=== PATIENT | male | born 1995 | race Caucasian/White ===

== ENCOUNTER 2017-11-06 14:41 | Emergency (ER) | payer SELFPAY ==
[~2017-11-06] VITALS: Ht 177.8 cm; Wt 99.8 kg
[2017-11-06] MEDS ORDERED: NS IV 1000 ML 1,000 ML IV ONE (15:27)
[2017-11-06] MEDS ORDERED: ONDANSETRON 4 MG/2 ML (SDV) Z0FRAN IVP ONE (15:30)
[2017-11-06 15:33] LABS: BILIRUBIN,URINE NEGATIVE (NEGATIVE); KETONES,URINE NEGATIVE (NEGATIVE); LEUKOCYTE ESTERASE ,URINE 1+ (NEGATIVE); NITRITE,URINE NEGATIVE (NEGATIVE); PH,URINE 8 (5-9); PROTEIN,URINE 1+ (NEGATIVE); UROBILINOGEN,URINE 1 MG/DL (NORMAL)
[2017-11-06 15:35] LABS: BASOPHILS % (AUTO) 0 % (0-10); EOSINOPHILS # (AUTO) 0.1 10^3/uL (0.0-0.3); EOSINOPHILS % (AUTO) 0 % (0-10); LYMPHOCYTES # (AUTO) 0.8 X 10^3 (1.0-4.0); LYMPHOCYTES % (AUTO) 5 % (12-44); MEAN CORPUSCULAR HEMOGLOBIN 32 PG (25-34); MEAN CORPUSCULAR HGB CONC 35 G/DL (32-36); MEAN CORPUSCULAR VOLUME 91 FL (80-99); MEAN PLATELET VOLUME 10.7 FL (7.4-10.4); MONOCYTES % (AUTO) 6 % (0-12); NEUTROPHILS # (AUTO) 15.4 X 10^3 (1.8-7.8); NEUTROPHILS % (AUTO) 89 % (42-75); PLATELET COUNT 348 10^3/uL (130-400); RED BLOOD COUNT 5.34 10^6/uL (4.35-5.85); RED CELL DISTRIBUTION WIDTH 12.4 % (10.0-14.5); WHITE BLOOD COUNT 17.3 10^3/uL (4.3-11.0)
[2017-11-06 15:42] LABS: WBC,URINE RARE /HPF
[2017-11-06] MEDS ORDERED: KETOROLAC 30 MG/ML VIAL IVP ONE (15:45)
[2017-11-06] MEDS ORDERED: FAMOTIDINE 20MG/2ML IV (PEPCID) IVP ONE (15:45)
[2017-11-06 15:49] LABS: BAND NEUTROPHILS 2 %; LYMPHOCYTES % (MANUAL) 5 %; NEUTROPHILS % (MANUAL) 88 %
[2017-11-06 15:51] LABS: ALANINE AMINOTRANSFERASE 53 U/L (0-55); ALBUMIN 4.4 GM/DL (3.2-4.5); ANION GAP 14 MMOL/L (5-14); ASPARTATE AMINO TRANSFERASE 24 U/L (5-34); BILIRUBIN,TOTAL 1.2 MG/DL (0.1-1.0); BLOOD UREA NITROGEN 16 MG/DL (7-18); BUN/CREATININE RATIO 17; CALCIUM 9.3 MG/DL (8.5-10.1); CARBON DIOXIDE 23 MMOL/L (21-32); CHLORIDE 106 MMOL/L (98-107); CREATININE SERUM 0.96 MG/DL (0.60-1.30); GFR ESTIMATED > 60; GLUCOSE 105 MG/DL (70-105); LIPASE 13 U/L (8-78); MAGNESIUM 1.8 MG/DL (1.8-2.4); POTASSIUM 3.7 MMOL/L (3.6-5.0); SODIUM 143 MMOL/L (135-145); TOTAL PROTEIN 7.1 GM/DL (6.4-8.2)
[2017-11-06] MEDS ORDERED: ACETAMINOPHEN 500 MG TAB (TYLENOL) PO ONE (16:00)
[2017-11-06] MEDS ORDERED: ONDA4TAB8 SL (17:17)
--- NOTE | 2017-11-06 17:18 | ED General ---
General Chief Complaint: Fever-Adult/Adol Stated Complaint: VOMITING/SHAKINESS/LOWER BACK PAIN Nursing Triage Note: TO ER WITH REPORTS OF FEVER, NAUSEA, VOMITING, CHILLS AND LOWER BACK PAIN SINCE 0300. 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 PATIENT REPORTS THAT IT TOOK HIM OVER TWO HOURS TO MAKE IT FROM [place], [place] TO HERE. HE ADVISED THAT HE DID NOT REALLY KNOW WHERE HE WAS. PATIENT REPORTS MILD HEADACHE. DENIES ANY NECK PAIN OR ANY OTHER CONCERNS. Nursing Sepsis Screen: Possible Sepsis Risk Source of Information: Patient Exam Limitations: No Limitations History of Present Illness Time Seen by Provider: 15:25 Initial Comments This 22-year-old young man presents to the emergency room with complaints of severe vomiting that started around 03:00. He denies diarrhea. He reports only one urination today. His last solid meal was last night. He reports feeling confused and disoriented earlier. He reports it took him [address] from [place] to [place] and he cannot account for that time. He has been able to drink some green tea this afternoon but otherwise has vomited anything he swallowed. He has not taken any medications. He complains of significant lower backache. He does not have significant abdominal pain. He is febrile. Allergies and Home Medications Allergies Coded Allergies: No Known Drug Allergies (Unverified , 11/06/17) Home Medications Ondansetron 4 Mg Tab.rapdis, 4 MG SL Q4H PRN for NAUSEA/VOMITING-1ST LINE, #10 Prescribed by: DANY VALENTIN on 11/06/17 [id number] Constitutional: no symptoms reported EENTM: no symptoms reported Respiratory: no symptoms reported Cardiovascular: no symptoms reported Gastrointestinal: see HPI Genitourinary: see HPI Musculoskeletal: see HPI Skin: no symptoms reported Psychiatric/Neurological: See HPI Hematologic/Lymphatic: No Symptoms Reported Past Hmikazc-Huxwbs-Aejtuh Hx Patient Social History Alcohol Use: Occasionally Uses Recreational Drug Use: No Smoking Status: Never a Smoker 2nd Hand Smoke Exposure: No Recent Foreign Travel: No Contact w/Someone Who Travel: No Recent Infectious Disease Expo: No Recent Hopitalizations: No Physical Abuse: No Sexual Abuse: No Mistreated: No Fear: No Immunizations Up To Date Tetanus Booster (TDap): Less than 5yrs PED Vaccines UTD: Yes Seasonal Allergies Seasonal Allergies: No Surgeries History of Surgeries: Yes (RIGHT ELBOW) Surgeries: Orthopedic Respiratory History of Respiratory Disorde: No Cardiovascular History of Cardiac Disorders: No Neurological History of Neurological Disord: No Genitourinary History of Genitourinary Disor: No Gastrointestinal History of Gastrointestinal Di: No Musculoskeletal History of Musculoskeletal Dis: No Endocrine History of Endocrine Disorders: No HEENT History of HEENT Disorders: No Cancer History of Cancer: No Psychosocial History of Psychiatric Problem: No Suicide Risk Score: 0 Integumentary History of Skin or Integumenta: No Blood Transfusions History of Blood Disorders: No Family Medical History Significant Family History: Heart Disease, Cancer, Diabetes, Seizures Physical Exam Vital Signs Vital Sign - Last 12Hours 11/06/17 15:05 Temp 101.7 Pulse 113 Resp 18 B/P (MAP) 119/77 (91) Pulse Ox 97 O2 Delivery Room Air Capillary Refill : Less Than 3 Seconds General Appearance: WD/WN, Mild Distress HEENT: PERRL/EOMI, Normal ENT Inspection, Pharynx Normal Neck: Normal Inspection Respiratory: Lungs Clear, Normal Breath Sounds, No Accessory Muscle Use, No Respiratory Distress Cardiovascular: Regular Rate, Rhythm, No Edema, No Murmur Gastrointestinal: Normal Bowel Sounds, Soft, Tenderness (Minimal in the epigastric region) Extremity: Normal Inspection, No Pedal Edema Neurologic/Psychiatric: Alert, Oriented x3, No Motor/Sensory Deficits, Normal Mood/Affect, senior asset manager II-XII Norm as Tested Skin: Normal Color, Warm/Dry Progress/Results/Core Measures Suspected Sepsis Recent Fever Within 48 Hours: Yes Infection Criteria Present: Suspected New Infection New/Unexplained Altered Menta: No Sepsis Screen: Possible Sepsis Risk Sepsis Diagnosis: SIRS Temperature:100.4 Pulse: 113 Respiratory Rate: 18 Laboratory Tests 11/06/17 15:05: White Blood Count 17.3H Blood Pressure 119 /77 Mean: 91 Laboratory Tests 11/06/17 15:05: Creatinine 0.96, Platelet Count 348, Total Bilirubin 1.2H Results/Orders Lab Results Laboratory Tests Test 11/06/17 15:00 11/06/17 15:05 Range/Units Urine Color YELLOW Urine Clarity CLEAR Urine pH 8 5-9 Urine Specific [place] 1.010 L 1.016-1.022 Urine Protein 1+ H NEGATIVE Urine Glucose (UA) NEGATIVE NEGATIVE Urine Ketones NEGATIVE NEGATIVE Urine Nitrite NEGATIVE NEGATIVE Urine Bilirubin NEGATIVE NEGATIVE Urine Urobilinogen 1 NORMAL MG/DL Urine Leukocyte Esterase 1+ H NEGATIVE Urine RBC (Auto) NEGATIVE NEGATIVE Urine RBC NONE /HPF Urine WBC RARE /HPF Urine Squamous Epithelial Cells NONE /HPF Urine Crystals NONE /LPF Urine Bacteria TRACE /HPF Urine Casts NONE /LPF Urine Mucus SMALL H /LPF Urine Culture Indicated YES White Blood Count 17.3 H 4.3-11.0 10^3/uL Red Blood Count 5.34 4.35-5.85 10^6/uL Hemoglobin 16.9 13.3-17.7 G/DL Hematocrit 49 40-54 % Mean Corpuscular Volume 91 80-99 FL Mean Corpuscular Hemoglobin 32 25-34 PG Mean Corpuscular Hemoglobin Concent 35 32-36 G/DL Red Cell Distribution Width 12.4 10.0-14.5 % Platelet Count 348 130-400 10^3/uL Mean Platelet Volume 10.7 H 7.4-10.4 FL Neutrophils (%) (Auto) 89 H 42-75 % Lymphocytes (%) (Auto) 5 L 12-44 % Monocytes (%) (Auto) 6 0-12 % Eosinophils (%) (Auto) 0 0-10 % Basophils (%) (Auto) 0 0-10 % Neutrophils # (Auto) 15.4 H 1.8-7.8 X 10^3 Lymphocytes # (Auto) 0.8 L 1.0-4.0 X 10^3 Monocytes # (Auto) 1.0 0.0-1.0 X 10^3 Eosinophils # (Auto) 0.1 0.0-0.3 10^3/uL Basophils # (Auto) 0.0 0.0-0.1 10^3/uL Neutrophils % (Manual) 88 % Lymphocytes % (Manual) 5 % Monocytes % (Manual) 5 % Band Neutrophils 2 % Hypersegmented Neutrophils SLIGHT Toxic Granulation 1+ Dohle Bodies SLIGHT Blood Morphology Comment NORMAL Sodium Level 143 135-145 MMOL/L Potassium Level 3.7 3.6-5.0 MMOL/L Chloride Level 106 98-107 MMOL/L Carbon Dioxide Level 23 21-32 MMOL/L Anion Gap 14 5-14 MMOL/L Blood Urea Nitrogen 16 7-18 MG/DL Creatinine 0.96 0.60-1.30 MG/DL Estimat Glomerular Filtration Rate > 60 BUN/Creatinine Ratio 17 Glucose Level 105 70-105 MG/DL Calcium Level 9.3 8.5-10.1 MG/DL Magnesium Level 1.8 1.8-2.4 MG/DL Total Bilirubin 1.2 H 0.1-1.0 MG/DL Aspartate Amino Transf (AST/SGOT) 24 5-34 U/L Alanine Aminotransferase (ALT/SGPT) 53 0-55 U/L Alkaline Phosphatase 56 40-136 U/L Total Protein 7.1 6.4-8.2 GM/DL Albumin 4.4 3.2-4.5 GM/DL Lipase 13 8-78 U/L My Orders Orders - DANY DAVILA MD Cbc With Automated Diff (11/06/17 15:27) Comprehensive Metabolic Panel (11/06/17:27) Lipase (11/06/17 15:27) Magnesium (11/06/17 15:27) Ua Culture If Indicated (11/06/17 15:27) Saline Lock/Iv-Start (11/06/17 15:27) Ns Iv 1000 Ml (Sodium Chloride 0.9%) (11/06/17 15:27) Ondansetron Injection (Zofran Injectio (11/06/17 15:30) Manual Differential (11/06/17 15:05) Famotidine Injection (Pepcid Injection) (11/06/17 15:45) Ketorolac Injection (Toradol Injection) (11/06/17 15:45) Urine Culture (11/06/17 15:00) Acetaminophen Tablet (Tylenol Tablet) (11/06/17 16:00) Rx-Ondansetron Po (Rx-Zofran Po) (11/06/17 17:19) Rx-Ondansetron Po (Rx-Zofran Po) (11/06/17 17:19) Medications Given in ED Current Medications Medications Dose Ordered Sig/Leno Route Start Time Stop Time Status Last Admin Dose Admin Acetaminophen 1,000 mg ONCE ONCE PO 11/06/17 16:00 11/06/17 16:01 DC 11/06/17 16:21 1,000 MG Famotidine 20 mg ONCE ONCE IVP 11/06/17 15:45 11/06/17 15:46 DC 11/06/17 15:55 20 MG Ketorolac Tromethamine 30 mg ONCE ONCE IVP 11/06/17 15:45 11/06/17 15:46 DC 11/06/17 15:54 30 MG Ondansetron HCl 8 mg ONCE ONCE IVP 11/06/17 15:30 11/06/17 15:31 DC 11/06/17 15:36 8 MG Sodium Chloride 1,000 ml @ 0 mls/hr Q0M ONCE IV 11/06/17 15:27 11/06/17 15:29 DC 11/06/17 15:35 0 MLS/HR Vital Signs/I&O Vital Sign - Last 12Hours 11/06/17 11/06/17 11/06/17 11/06/17 15:05 15:54 16:21 17:25 Temp 101.7 101.7 100.4 98.9 Pulse 113 96 Resp 18 18 B/P (MAP) 119/77 (91) Pulse Ox 97 98 O2 Delivery Room Air Room Air Capillary Refill : Less Than 3 Seconds Blood Pressure Mean: 91 Progress Note : Progress Note Patient was given a liter of IV fluids. GI symptoms were treated with Zofran and Pepcid with good results. Patient was able to tolerate water and Tylenol tablets. Tylenol was administered for treatment of the fever. Patient had no significant focal tenderness on abdominal exam and imaging was therefore not pursued. Toradol was given for the lower back pain. Patient had marketed improvement and felt great relief after treatment. He was able to take a nap and departed feeling refreshed. He was sent out with a take-home packet of Zofran. Departure Impression Impression: Primary Impression: Nausea and vomiting Qualified Codes: R11.2 - Nausea with vomiting, unspecified Additional Impressions: Lower back pain Qualified Codes: M54.5 - Low back pain Fever Qualified Codes: R50.9 - Fever, unspecified Disposition: 01 HOME, SELF-CARE Condition: Improved Departure-Patient Inst. Decision time for Depature: 17:15 Referrals: NO,LOCAL PHYSICIAN (PCP/Family) Primary Care Physician Patient Instructions: Nausea and Vomiting, Adult Add. Discharge Instructions: Stick with just clear liquids tonight. Tomorrow morning you can gradually advance your diet with small quantities of bland food as tolerated. Dissolve Zofran (ondansetron) under the tongue every 4 hours as needed for nausea and vomiting. Return to care if symptoms worsen again. For pain and fever, try to stick with Tylenol (acetaminophen) up to 1000 mg every 6 hours as needed. If this is not effective, you may add ibuprofen up to 600 mg every 6 hours as needed. All discharge instructions reviewed with patient and/or family. Voiced understanding. Scripts Ondansetron (Zofran Odt) 4 Mg Tab.rapdis 4 MG SL Q4H Y for NAUSEA/VOMITING-1ST LINE, #10 TAB Prov: DANY DAVILA MD 11/06/17 DANY DAVILA MD Nov 06, 2017 17:18
[2017-11-06] MEDS ORDERED: RX-ONDANSETRON 4 MG ODT (ZOFRAN) PPK #4 SL STA (17:19)
[2017-11-06] MEDS ORDERED: RX-ONDANSETRON 4 MG ODT (ZOFRAN) PPK #4 ONE (17:19)
[2017-11-06 17:25] VITALS: BP 100/57
== END 2017-11-06 17:25 | disposition home or self-care (01) ==
LOC: ER 14:44
DX: R11.2 Nausea with vomiting, unspecified (principal); M54.5 Low back pain; R50.9 Fever, unspecified; Z82.49 Family history of ischemic heart disease and other diseases of the circulatory system; Z80.9 Family history of malignant neoplasm, unspecified
CPT/HCPCS: 36415; 80053; 81000; 83690; 83735; 85007; 85027; 87088